=== PATIENT | male | born 1950 | race Caucasian/White ===

== ENCOUNTER 2021-07-04 14:08 | Outpatient (REF) | payer MEDICARE, SELFPAY ==
--- NOTE | ~2021-07-04 | CT_ITS ---
EXAMINATION: CT CHEST WITHOUT CONTRAST CLINICAL INFORMATION: Lung nodule COMPARISON: Outside chest CT 04/08/2020 TECHNIQUE: Multidetector volumetric CT imaging of the chest was done. Axial MIP volume rendering provided. Sagittal and coronal reformatted images were obtained. This CT examination was performed using dose optimization techniques as appropriate, variously including the following: *Automated exposure control *Adjustment of mA and/or kV according to patient size (this includes techniques or standardized protocols for targeted exams where dose is matched to indication/reason for exam; i.e. extremities or head) *Use of iterative reconstruction technique DLP: 183 mGy-cm FINDINGS: TOE SEWER: Symmetrically expanded lungs. LUNGS: Multiple bilateral tiny pulmonary micronodules are present. Several are definitely calcified consistent with prior granulomatous disease. The majority of the others are small, 1-3 mm and were present previously and are unchanged. There is an area of curvilinear atelectasis/chronic consolidation with an associated bronchiectatic airway in the right middle lobe anterior to the right major fissure, present previously and unchanged. There is similar curvilinear abnormality in the anterior inferior lingula, present as well. No new suspicious or increasing pulmonary nodules or masses seen. No groundglass opacity or consolidation seen. MEDIASTINUM: No hilar or mediastinal lymphadenopathy. Normal heart size. No pericardial effusion. PLEURA: There is no pleural effusion. No pleural mass or thickening. AXILLA: No lymphadenopathy. UPPER ABDOMEN: Cyst in the left lobe of liver OSSEOUS STRUCTURES: ; No imaging follow-up recommended. No adrenal mass. Multilevel degenerative changes of the thoracolumbar spine. CT/CT chest wo con IMPRESSION: Unchanged multiple bilateral tiny pulmonary micronodules 1-3 mm, present previously and unchanged. Many are calcified consistent with prior granulomatous disease. Consider continued annual follow-up if the patient is considered high risk for lung cancer. In the absence of risk factors, the greater than 1 year of stability suggests a benign etiology. Fleischner guidelines were followed.
== END 2021-07-04 14:09 | disposition home or self-care (01) ==
LOC: HO.CT 14:08
PROVIDERS: Visit Provider Internal Medicine Critical Care Medicine
DX: R91.8 Other nonspecific abnormal finding of lung field (principal)
CPT/HCPCS: 71250